=== PATIENT | male | born 1995 | race Caucasian/White ===

== ENCOUNTER 2022-03-10 23:45 | Emergency (ER) | payer OTHER ==
[2022-03-11 00:32] LABS: BASOPHIL 0.6 % (0-2); EOSINOPHIL 1.3 % (0-5); HCT 39.1 % (42.0-52.0); LYMPHOCYTE 17.9 % (15-48); MCH 28.9 pg (25.0-31.0); MCHC 33.2 g/dL (32.0-36.0); MCV 86.9 fL (78.0-100.0); MONOCYTE 9.8 % (0-12); MPV 10.3 fL (6.0-9.5); NEUTROPHIL 69.7 % (41-80); NRBC 0; PLT 392 K/uL (150-400); RDW 12.7 % (11.5-14.0); WBC 14.3 K/uL (4.0-10.5)
[2022-03-11 00:41] LABS: ALBUMIN 3.6 g/dL (3.4-5.0); BILIRUBIN - TOTAL 0.1 mg/dL (0.2-1.0); BUN/CREAT RATIO (CALC) 15.6 RATIO; CREATININE 0.77 mg/dL (0.67-1.17); GLOBULIN (CALCULATION) 3.8 g/dL; POTASSIUM 3.9 mmol/L (3.5-5.1); TOTAL PROTEIN 7.4 g/dL (6.4-8.2)
[2022-03-11] MEDS ORDERED: PREDNISONE 20MG20 MG PO (03:01)
== END 2022-03-11 03:15 | disposition home or self-care (01) ==
LOC: FER 23:45
PROVIDERS: Emergency Medicine
DX: S30.1XXA Contusion of abdominal wall, initial encounter (principal); L21.0 Seborrhea capitis; V49.40XA Driver injured in collision with unspecified motor vehicles in traffic accident, initial encounter
CPT/HCPCS: 36415; 71260; 80053; 83690; 85025; 93005; J1170; J1885; J7030; Q9967